=== PATIENT | female | born 1960 | race Caucasian/White ===

== ENCOUNTER 2018-09-11 09:30 | Emergency (ER) | payer OTHER ==
[~2018-09-11] VITALS: Ht 172.7 cm; Wt 81.7 kg
--- OUTSIDE RECORDS SUMMARY | ~2018-09-11 | XMS | Clinical Summary ---
Demographics + + + | Address | [address] | | | [place] [address] | + + + | Home Phone | | + + + | Preferred Language | Unknown | + + + | Marital Status | Single | + + + | Uatsdin Affiliation | CAT | + + + | Race | White | + + + | Ethnic Group | Not or | + + + Author + + + | Author | [facility] | + + + | Organization | [facility] | + + + | Address | Unknown | + + + | Phone | Unavailable | + + + Support + + +---------+ + | Name | Relationship | Address | Phone | + + +---------+ + | Tabitha Short | ECON | Unknown | | + + +---------+ + Care Team Providers + +------+ + | Care Liquid Hydrogen Plant Operator Name | Role | Phone | + +------+ + | Taylor Ludwig PA-C | PP | | + +------+ + Source Comments VIN is fully live on both [facility] Ambulatory and [facility] InPatient.[facility] Allergies No Known Allergies Current Medications + + +---------+---------+------+------+-------+ | Prescription | Sig. | Disp. | Refills | Star | End | Statu | | | | | | t | Date | s | | | | | | Date | | | + + +---------+---------+------+------+-------+ | doxycycline | once daily at | | 1 | 02/0 | | Activ | | monohydrate 100 mg | bedtime. | | | /20 | | e | | oral capsule | | | | 17 | | | + + +---------+---------+------+------+-------+ | estradiol 0.1 | Apply 1 patch to | | 1 | 02/0 | | Activ | | mg/24 hr transdermal | skin twice weekly | | | 20 | | e | | patch semiweekly | (on Thursday and | | | 17 | | | | | Thursday). | | | | | | + + +---------+---------+------+------+-------+ | CALCIUM | Take by mouth once | | | | | Activ | | CARBONATE/VITAMIN D3 | daily at bedtime. | | | | | e | | (CALCIUM + D ORAL) | | | | | | | + + +---------+---------+------+------+-------+ | | Take by mouth once | | | | | Activ | | Hpziz-9-SFB-EPA-Fish | daily at bedtime. | | | | | e | | Oil (FISH OIL) | | | | | | | | 1,000 mg (120 mg-180 | | | | | | | | mg) oral capsule | | | | | | | + + +---------+---------+------+------+-------+ | GLUCOSAMINE | Take by mouth once | | | | | Activ | | SULFATE (GLUCOSAMINE | daily at bedtime. | | | | | e | | ORAL) | | | | | | | + + +---------+---------+------+------+-------+ | ondansetron ODT 4 | Dissolve 1 tablet in | 10 | 0 | 02/2 | | Activ | | mg oral | mouth every twelve | tablet | | /20 | | e | | tablet,disintegratin | hours as needed. | | | 17 | | | | gIndications: | Indications: | | | | | | | Prevent Nausea and | Prevention of | | | | | | | Vomiting After | Post-Operative | | | | | | | Surgery | Nausea and Vomiting | | | | | | + + +---------+---------+------+------+-------+ | | Take 1 tablet by | 20 | 0 | 10/2 | | Activ | | oxyCODONE-acetaminop | mouth every four | tablet | | 5/20 | | e | | hen (PERCOCET) 5-325 | hours as needed. Not | | | 17 | | | | mg oral | to exceed 10 | | | | | | | tabletIndications: | tablets per any 24 | | | | | | | Pain | hour period. | | | | | | | | Indications: Pain | | | | | | + + +---------+---------+------+------+-------+ | | Instill 0.5 inches | 3.5 g | 1 | 10/2 | | Activ | | vclcwkuy-caqzlzjlc-d | into the left eye | | | 5/20 | | e | | examethasone 3.5 | once daily at | | | 17 | | | | mg/g-10,000 | bedtime. | | | | | | | unit/g-0.1 % | Indications: post-op | | | | | | | ophthalmic (eye) | | | | | | | | ointmentIndications: | | | | | | | | post-op | | | | | | | + + +---------+---------+------+------+-------+ | | 1 drop every four | | | | | Activ | | onokdxtc-tdsdcchhy-l | hours as needed. 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 | + + + | Mechanical strabismus, unspecified | 08/12/2016 | + + + | Diplopia | 08/12/2016 | + + + Family History + + +------+ + | Medical History | Relation | Name | Comments | + + +------+ + | Headache | Father | | | + + +------+ + | Cancer | Mother | | lymphocystic leukemia | + + +------+ + | Heart Disease | Paternal | | | | | Grandfath | | | | | er | | | + + +------+ + | High blood pressure | Paternal | | | | | Grandfath | | | | | er | | | + + +------+ + | Macular degeneration | Paternal | | | | | Grandmoth | | | | | er | | | + + +------+ + + +------+--------+ + | Relation | Name | Status | Comments | + +------+--------+ + | Father | | | | + +------+--------+ + | Mother | | | | + +------+--------+ + | Paternal Grandfather | | | | + +------+--------+ + | Paternal Grandmother | | | | + +------+--------+ + Social History + + + +--------+ + | Tobacco Use | Types | Packs/Day | Years | Date | | | | | Used | | + + + +--------+ + | Former Smoker | Cigarettes | 0.12 | 15 | 1999 - 2014 | + + + +--------+ + + +---+---+---+ | Smokeless Tobacco: | | | | | Never Used | | | | + +---+---+---+ + + +---------+ + | Alcohol Use | Drinks/We | oz/Week | Comments | | | ek | | | + + +---------+ + | Yes | 2-5 | 4.2 - | | | | Standard | 6.0 | | | | drinks or | | | | | | | | | | equivalen | | | | | t 5 Cans | | | | | of beer | | | + + +---------+ + + + + | Sex Assigned at | Date Recorded | | | | + + + | Not on file | | + + + Last Filed Vital Signs + + + + | Vital Sign | Reading | Time Taken | + + + + | Blood Pressure | 99/60 | 04/29/2017 1:14 PM PST | + + + + | Pulse | 74 | 04/29/2017 1:14 PM PST | + + + + | Temperature | 36.6 C (97.9 F) | 04/29/2017 1:24 PM PST | + + + + | Respiratory Rate | 18 | 04/29/2017 1:14 PM PST | + + + + | Oxygen Saturation | 98% | 04/29/2017 1:14 PM PST | + + + + | Inhaled Oxygen | - | - | | Concentration | | | + + + + | Weight | 81.6 kg (180 lb) | 04/29/2017 9:38 AM PST | + + + + | Height | 172.7 cm (5' 8") | 04/29/2017 9:38 AM PST | + + + + | Body Mass Index | 27.37 | 04/29/2017 9:38 AM PST | + + + + Plan of Treatment + + + + + | Health Maintenance | Due Date | Last Done | Comments | + + + + + | Influenza (Flu) | | | | | vaccination (#1) | 8 | | | + + + + + Results Not on filefrom Last 3 Months Insurance + +--------+ +------+ + + | Payer | Benefi | Subscriber | Type | Phone | Address | | | t Plan | ID | | | | | | / | | | | | | | Group | | | | | + +--------+ +------+ + + | [employer] | MODA | xxxxxxxxx | PPO | [phone]- | [place] [id number] | | | [employer] | | [phone] | [place] [address] | | | [place] | | | | | | | [place] | | | | | + +--------+ +------+ + + + +--------+ +--------+ + + | Guarantor Name | Accoun | Relation to | Date | Phone | Billing Address | | | t Type | Patient | of | | | | | | | | | | + +--------+ +--------+ + + | ZECHARIAH HENRIQUEZ | Person | Self [birth year] Home: | [address] | | [place] | [place] | | 1960 | [phone] | [place] [address] | | | sharee | | | [phone] | | + +--------+ +--------+ + +
--- OUTSIDE RECORDS SUMMARY | ~2018-09-11 | XMS | Clinical Summary ---
Demographics + + + | Address | [address] | | | [place] [address] | + + + | Home Phone | | + + + | Preferred Language | Unknown | + + + | Marital Status | Unknown | + + + | Yarsanism Affiliation | Unknown | + + + | Race | Unknown | + + + | Ethnic Group | Unknown | + + + Author + + + | Author | [facility] | | | and Darrian | + + + | Organization | [facility] | | | and [place] | + + + | Address | Unknown | + + + | Phone | Unavailable | + + + Care Team Providers + +------+ + | Care Network Systems Operator Name | Role | Phone | + +------+ + PP | Unavailable | + +------+ + Allergies Not on File Current Medications Not on file Active Problems Not on file Social History + +-------+ +--------+------+ | Tobacco Use | Types | Packs/Day | Years | Date | | | | | Used | | + +-------+ +--------+------+ | Never Assessed | | | | | + +-------+ +--------+------+ + + + | Sex Assigned at | Date Recorded | | | | + + + | Not on file | | + + + Plan of Treatment + + + + + | Health Maintenance | Due Date | Last Done | Comments | + + + + + | Vaccine: | | | | | Dtap/Tdap/Td (1 - | 1 | | | | Tdap) | | | | + + + + + | Cervical Cancer | | | | | Screening (Pap) | 2 | | | + + + + + | Vaccine: Zoster (1 | | | | | of 2) | 2 | | | + + + + + | Vaccine: Influenza | | | | | (#1) | 8 | | | + + + + + Results Not on filefrom Last 3 Months"
--- OUTSIDE RECORDS SUMMARY | ~2018-09-11 | XMS | Clinical Summary ---
Demographics + + + | Address | [address] | | | [place] [address] | + + + | Home Phone | | + + + | Preferred Language | Unknown | + + + | Marital Status | Single | + + + | Confucianism Affiliation | CAT | + + + | Race | White | + + + | Ethnic Group | Not or | + + + Author + + + | Author | [facility] | + + + | Organization | [facility] | + + + | Address | Unknown | + + + | Phone | Unavailable | + + + Support + + +---------+ + | Name | Relationship | Address | Phone | + + +---------+ + | Tabitha Short | ECON | Unknown | | + + +---------+ + Care Team Providers + +------+ + | Care Blue Leather Sorter Name | Role | Phone | + +------+ + | Taylor Ludwig PA-C | PP | | + +------+ + Source Comments VIN is fully live on both [facility] Ambulatory and [facility] InPatient.[facility] Allergies No Known Allergies Current Medications + [...] | | | | Activ | | Fskej-5-FHF-EPA-Fish | daily at bedtime. | | | [...] | 10/2 | | Activ | | mbwmcpqw-pragecgfx-v | into the left eye | | [...] | | | | Activ | | bfcthuke-fkgvysloz-h | hours as needed. | | | [...] [phone] | PPO | [phone]- | [place] [address] | | | [employer] | | [phone] | [place] [address] | | | [employer]EX | | | [...] | Self | [birth year] | Home: | [address] | | [place] | [place] | | 1960 | [phone] | [place] [address] | | | sharee | | | [phone] | | + +--------+ +--------+ + +
--- OUTSIDE RECORDS SUMMARY | ~2018-09-11 | XMS | Clinical Summary ---
Demographics + + + | Address | [address] | | | [place] [address] | + + + | Home Phone | | + + + | Preferred Language | Unknown | + + + | Marital Status | Unknown | + + + | Jew Affiliation | Unknown | + + + | Race | Unknown | + + + | Ethnic Group | Unknown | + + + Author + + + | Author | [facility] | | | and [place]rian | + + + | Organization | [facility] | | | and [place] | + + + | Address | Unknown | + + + | Phone | Unavailable | + + + Care Team Providers + +------+ + | Care Group Contract Analyst Name | Role | Phone | + [...]
[~2018-09-11 09:30] MED LIST: CITALOPRAM HBR20 MG PO; DOXYCYCLINE HY100 MG PO; SUDAFED 12 HOU120 MG PO; VIVELLE-DOT1 EAC1 TD
== END 2018-09-11 10:25 | disposition home or self-care (01) ==
LOC: ED 09:30
DX: S83.91XA Sprain of unspecified site of right knee, initial encounter (principal); Z90.710 Acquired absence of both cervix and uterus; Z88.6 Allergy status to analgesic agent; Z88.5 Allergy status to narcotic agent; X50.1XXA Overexertion from prolonged static or awkward postures, initial encounter
CPT/HCPCS: 73560; 99283-25

== ENCOUNTER 2020-12-25 08:01 | Day surgery (SDC) | payer OTHER ==
[~2020-12-25] VITALS: Ht 172.7 cm; Wt 84.1 kg
--- NOTE | 2020-12-25 08:23 | NUR ---
PT ARRIVES TO DS UNIT FOR OUTPATIENT THYROID BIOPSY AMBULATORY. PT PLACED IN RM [address] CASSIDY PLANS TO DO PROCEDURE INBETWEEN SURGICAL CASES. PT HAS LOW V-NECK TOP IN PLACE AND DECLINES GOWN. PROVIDED WARM BLANKET AND CALL LIGHT, PLANS TO OCCUPY SELF WITH CELL PHONE.
--- NOTE | 2020-12-25 09:40 | NUR ---
REPORT FROM ROBERTO PAK THAT PT "HAD A HOT FLASH" WITH PROCEDURE. THIS RN ASSESSES PT, PROVIDES COOL AIR TO PT FACE. PT STATES SHE IS FEELING MUCH BETTER AND DENIES ANY PAIN IN NECK AREA. PT INSTRUCTED TO REMOVE BANDAID WITHIN 24 HOURS AND TO FOLLOW INSTRUCTION FROM DR. CASSIDY. WILL PLAN TO RELEASE PT IN 10-15 MINUTES, CALL LIGHT WITHIN REACH.
--- NOTE | 2020-12-25 10:10 | NUR ---
1000: DR. CASSIDY GIVES THIS RN A VERBAL ORDER THAT PT MAY DC WHEN READY. PT DENIES ANY PAIN OR NAUSEA, STATES SHE "FEELS FINE." PT ALSO STATES THAT HER BP IS NOW CLOSE TO HER BASELINE AND THAT PRIOR TO THE PROCEDURE IT WAS ELEVATED FROM NERVES. PT DENIES ANY DIZZINESS WHEN POSITION CHANGE, AMBULATES TO BR WITH STEADY GAIT. PT DECLINES WC RIDE TO CAR, DC AMBULATORY FROM DS RM 7 TO HOME.
--- NOTE | 2021-01-01 14:34 | OR ---
[facility] [address] [place], [place] [address] Signed DATE OF OPERATION: 12/25/2020 SURGEON: Alvaro Cassidy MD PREOPERATIVE DIAGNOSES: 1. Episodic cervical dysphagia. 2. Left thyroid nodule 20 mm; right-sided nodule, 6 and 5 mm. POSTOPERATIVE DIAGNOSES: 1. Episodic cervical dysphagia. 2. Left thyroid nodule 20 mm; right-sided nodule, 6 and 5 mm. PROCEDURE: Ultrasound-guided fine-needle aspiration biopsy of left thyroid nodule. ANESTHESIA: 0.25% Marcaine (2 mL). INDICATION: This 60-year-old white woman is a patient of Juliana Ludwig. She has had some cervical dysphagia and persistent throat clearing. She has no underlying reflux problems. An ultrasound was performed on November 07, 2020 showing a lower pole left-sided nodule and 2 small nodules on the right side, 7 and 6 mm. The large nodule was considered TI-RADS #1 and the other 2 small nodules considered category 4. She has no family history of thyroid cancer, radiation exposure, or other prior history of thyroid problem and I have recommended biopsy in particular of the lower pole nodule on the left and if feasible, the right-sided nodule though small. She understands the risks of bleeding, infection, nerve injury, failure of diagnosis, and misdiagnosis and wishes to proceed with ultrasound-guided fine-needle aspiration biopsy. FINDINGS: Ultrasound identified the left-sided nodule, which appeared to have somewhat of a calcified rim and a hypoechoic center. The other 2 small nodules were identified and hypoechoic, but not irregular in configuration and less problematic grossly. Ultrasound-guided fine-needle aspiration biopsy was undertaken of the largest nodule 20 mm in size. The patient did have some queasiness during the course of the procedure, though it was not particularly painful. This prompted 1 to be less aggressive on very small nodules on the right side and therefore biopsy on the left side only was performed. Electronically Signed By: ALVARO CASSIDY MD 01/01/21 1434 PATIENT NAME: ZECHARIAH HENRIQUEZ OPERATIVE REPORT DATE OF : 62 REPORT #: [id number] PHYSICIAN: ALVARO CASSIDY MD PCP: JULIANA LUDWIG PA-C REPORT IS CONFIDENTIAL AND NOT TO BE RELEASED WITHOUT AUTHORIZATION [facility] [address] [place], [place] [address] Signed DESCRIPTION OF PROCEDURE: The patient was placed in the supine position with a pillow beneath the shoulders allowing for some neck extension. The neck was evaluated with the [facility] ultrasound device, identified nasally the trachea of the right and left lobes and the respective nodules as noted above. The neck was then prepared with chlorhexidine solution and draped sterilely and 0.25% Marcaine with epinephrine was injected locally, anticipating the alignment of the device for fine-needle aspiration biopsy. Once the lesion in question was identified, a control syringe 10 mL in size with a 22-gauge needle was passed, 1st from a central to lateral position and secondarily direct on face approach allowing for interrogation of the left-sided nodule with multiple passes. The 1st two syringes delivered essentially no bloody fluid at all and uncertainty as to how much was actually collected. The 3rd syringe had a bit more bloody material. All the specimens were placed in the same preservative container. The patient did have a brief episode of feeling a bit faint and clammy and therefore procedure was truncated allowing for her to recover a bit before pursuing the final aspiration biopsy. The symptoms quickly passed and she felt quite well after that. Re-examination of the neck with the ultrasound showed no sign of hematoma or other problem. A Band-Aid was applied to the neck. She tolerated procedure well. MD KWAN Montero/DODIE /[id number] cc: ARIANNA Carmichael Copies: ~ Electronically Signed By: ALVARO CASSIDY MD 01/01/21 1434 PATIENT NAME: ZECHARIAH HENRIQUEZ OPERATIVE REPORT DATE OF : 62 REPORT #: [id number] PHYSICIAN: ALVARO CASSIDY MD PCP: JULIANA LUDWIG PA-C REPORT IS CONFIDENTIAL AND NOT TO BE RELEASED WITHOUT AUTHORIZATION
== END 2020-12-25 10:05 | disposition home or self-care (01) ==
LOC: OPS 08:01 → DS 08:02 → EDSTATUS 09:00 → DS 09:00 → OPS 09:00
PROVIDERS: ATTEND Surgery
DX: E04.2 Nontoxic multinodular goiter (principal)
CPT/HCPCS: 10021

== ENCOUNTER 2021-08-22 08:36 | Day surgery (SDC) | payer OTHER ==
--- NOTE | 2021-08-22 09:28 | NUR ---
0835: PATIENT ARRIVED TO DAY SURGERY UNIT AMBULATORY. PLACED IN ROOM 6. DAUGHTER AT BEDSIDE. 0845: VS CHECKED. CONSENT SIGNED. 09: DR. CASSIDY IN ROOM TO DO PROCEDURE. 09: FINE NEEDLE ASPIRIATION OF LEFT THYROID COMPLETE. PATIENT TOLERATED PROCEDURE WELL. VS CHECKED. PATIENT STATES FEELING WELL AND READY TO GO HOME. PATIENT EDUCATED BANDAID CAN BE REMOVED LATE THIS EVENING OR CAN REMAIN ON UP TO 24 HOURS. PATIENT DRESSED INDEPENDENTLY. PATIENT DISCHARGED TO HOME AMBULATORY WITH DAUGHTER.
--- NOTE | 2021-08-22 12:07 | OR ---
[facility] [address] [place], [place] [address] Signed DATE OF OPERATION: 08/22/2021 SURGEON: Alvaro Cassidy MD PREOPERATIVE DIAGNOSIS: Recurrent left isthmus cystic lesion. POSTOPERATIVE DIAGNOSIS: Recurrent left isthmus cystic lesion. PROCEDURE: Ultrasound-guided fine-needle aspiration biopsy of left thyroid mass (cystic). ANESTHESIA: Local 1% lidocaine. INDICATION: This 61-year-old white woman has a palpable mass located in the left isthmus. She had a similar lesion over a year ago. Fine-needle aspiration biopsy showed no sign of malignancy. The lesion is more problematic to her. She feels fullness and so forth. Consideration has been made for segmental resection of the isthmus to include the cystic lesion, which is closer to the left lobe than the right. Aspiration biopsy will be undertaken at this time by ultrasound guidance and cytology obtained to assess malignancy potential of the lesion, which may guide further therapy. The risk of bleeding, infection, recurrence and so forth were reviewed with her, she understands and wished to proceed. FINDINGS: Ultrasound identified a dumbbell-shaped type cystic lesion of the isthmus trending towards the left thyroid lobe. Needle aspiration allowed for complete decompression of the cyst and bloody fluid of the cyst was noted. It was passed for cytology. DESCRIPTION OF PROCEDURE: In the day surgery area, she was on a stretcher and a pillow placed beneath the shoulders allowing for neck extension. The neck was examined with an ultrasound device (SonArmetheonte), identifying no evidence of nodule within the right thyroid lobe nor in the left thyroid lobe proper. The cystic lesion of the isthmus was well demonstrated and somewhat in a dumbbell-shaped, the larger portion towards the left lobe. The neck was then prepared with chlorhexidine solution and draped sterilely and 1% lidocaine was injected allowing for a sleeve covered SonoSite probe to better characterize the area. Electronically Signed By: ALVARO CASSIDY MD 08/22/21 1207 PATIENT NAME: ZECHARIAH HENRIQUEZ OPERATIVE REPORT DATE OF : 62 REPORT #: [id number] PHYSICIAN: ALVARO CASSIDY MD PCP: JULIANA CAICEDO PA-C REPORT IS CONFIDENTIAL AND NOT TO BE RELEASED WITHOUT AUTHORIZATION [address] [place], [place] [address] Signed Under direct visualization, needle aspiration was undertaken in line for complete decompression of the cystic lesion. The fluid appeared bloody. There was no sign of bleeding locally. A Band-Aid was applied. She tolerated the procedure well. MD KWAN Montero/MODL /[id number] cc: ARIANNA Carmichael Copies: ~ Electronically Signed By: ALVARO CASSIDY MD 08/22/21 1207 PATIENT NAME: ZECHARIAH HENRIQUEZ OPERATIVE REPORT DATE OF : 62 REPORT #: [id number] PHYSICIAN: ALVARO CASSIDY MD PCP: JULIANA CAICEDO PA-C REPORT IS CONFIDENTIAL AND NOT TO BE RELEASED WITHOUT AUTHORIZATION
== END 2021-08-22 09:27 | disposition home or self-care (01) ==
LOC: DS 08:36 → EDSTATUS 09:00 → OPS 09:00 → DS 09:27
PROVIDERS: ATTEND Surgery
PROC: 0GBJ3ZX Excision of Thyroid Gland Isthmus, Percutaneous Approach, Diagnostic (ICD-10-PCS; principal; 2021-08-22)
DX: E04.1 Nontoxic single thyroid nodule (principal); Z90.711 Acquired absence of uterus with remaining cervical stump
CPT/HCPCS: 10021

== ENCOUNTER 2021-12-24 05:54 | Observation (INO) | payer OTHER ==
[~2021-12-24] VITALS: Ht 172.7 cm; Wt 78.2 kg
[2021-12-24] MEDS ORDERED: ADVIL200 MG PO (06:30)
--- NOTE | 2021-12-24 09:09 | NUR ---
PT IS ALERT, ORIENTED AND SUPPORTED BY HER DAUGHTER JANA. PT FEELS INFORMED, WANTS TO VISIT WITH DR CASSIDY AND GIVE HER PERMISSION TO TAKE BOTH SIDES. JANA WILL REMAIN, HAD PRAYER WITH BOTH. GAVE COMFORT AND ENCOURAGEMENT. WILL FOLLOW NEEDED
--- NOTE | 2021-12-24 09:33 | NUR ---
12/24/21 0933 Arabella Dorado 0917 PT TO PACU SLEEPING ORAL AIRWAY IN PLACE, BP DELAYED IN TAKING DUE TO CUFF PLACEMENT AND PT MOVING ARMS. [address] OR[address] AIR[address] REMOVED PT AWAKE AND TALKING, CONTINUES TO TRY TO SIT AND MOVE ARMS AROUND. 09 O2 PLACED VIA NASAL CANNULA, SATS DROPED TO LOW 90S WHEN SHE RELAXES .
--- NOTE | 2021-12-24 10:05 | NUR ---
PT TO ROOM POST SURGERY, BEDSIDE REPORT FROM VICENTA MEJIA, PT MOVES SELF TO BED, ORIENTED PT AND DAUGHTER TO ROOM AND PLAN OF CARE. TRACH SET IN ROOM.
--- NOTE | 2021-12-24 13:14 | NUR ---
PT UP W/STBY (INDEPENDENT W/O IV POLE) TO BATHROOM. PT PERFORMED ORAL CARE, CONTACTS, WASHED FACE, VOID IN HAT. PT STEADY OF FEET NO COMPLAINTS OF PAIN AT THIS TIME. PT BACK IN BED RESTING COMFORTABLY WATCHING TV, DAUGHTER IN ROOM. NO REQUESTS AT THIS TIME. CALL LIGHT IN REACH.
--- NOTE | 2021-12-24 13:45 | NUR ---
PT IN M/S RM 113 FOLLOWING SURGERY. DAUGHTER JANA IN RM. PT ALERT, SEEMS PLEASED WITH HOW EASILY SHE CAME TO. THIS HAS BEEN AN ISSUE WITH PREVIOUS SURGERIES. ROBERTO KING IN CARING FOR PT. GAVE BLESSING AND WILL FOLLOW
--- NOTE | 2021-12-24 14:20 | NUR ---
I was able to visit with Elizabeth today regarding her care while here in the hospital. Elizabeth does have an adult daughter in the room with her. Elizabeth states that she feels her care has been "very good" and she denies complaints regarding her care. Both Elizabeth and her daughter deny questions or concerns at this time. Elizabeth feels that she will be able to go home tomorow. She is oriented to person, place, and time, and she answers questions appropriately. Both her, and her daughter compliment the staff for "doing a very good job" in caring for her as a patient.
--- NOTE | 2021-12-24 15:40 | NUR ---
dr ash here - pt denies pain or needs. leelee osman in am.
--- NOTE | 2021-12-24 19:41 | NUR ---
REPORT RECEIVED AT CHANGE OF SHIFT. PT IS SITTING UP IN BED, AWAKE AND ALERT. NO NEEDS . CALL LIGHT IN REACH.
--- NOTE | 2021-12-24 20:16 | NUR ---
PT CALLED, IV ALARMING. DISTAL OCCULSION, NOW INFUSING. IV WNL. PT DENIES NEEDS.
--- NOTE | 2021-12-24 21:23 | OR ---
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 Frozen pathology negative for malignancy. PROCEDURE: Left thyroid lobectomy with isthmusectomy. ANESTHESIA: General endotracheal, Alvaro Batista CRNA INDICATIONS: This 61-year-old white woman is a patient of Juliana Ludwig. She was found to have on ultrasound a 23 mm left lower pole thyroid cyst that was not particularly simple. Fine-needle aspiration showed only cyst fluid. She was asymptomatic regarding the nodule at that time. Reaccumulation of the fluid was noted on followup ultrasound and fine-needle aspiration biopsy was performed on August 22, 2021, again showing no clear evidence of malignancy. The appearance of the cyst showed nodularity within the cyst on the cyst wall. The two right-sided nodules are well less than 1 cm in size. She has no increased risk of thyroid cancer, specifically no radiation therapy history, no family history of thyroid cancer, and so on. At this point, however, her recurrent left thyroid cyst is causing her symptoms. She feels a fullness in her neck. She does not specifically have dysphagia or trouble breathing. She strongly wishes the cyst to be definitively removed. She also initially was interested in possible total thyroidectomy for the remaining two nodules on the right lobe, though I have recommended against that unless there appears to be a clinical suspicion in them. She understands there are risks to unilateral thyroid lobectomy as well as total thyroidectomy including but not limited to bleeding, infection, recurrent laryngeal nerve injury, external laryngeal nerve injury and other unforeseen complications including parathyroid excision that would be unintended. At this point, she wishes to proceed with left thyroid lobectomy with isthmusectomy for symptom control and definitive diagnosis. She understands those risks that we have Electronically Signed By: ALVARO CASSIDY MD 12/24/212122 PATIENT NAME: ZECHARIAH HENRIQUEZ OPERATIVE REPORT DATE OF : 62 REPORT #: [id number] PHYSICIAN: ALVARO CASSIDY MD PCP: JULIANA LUDWIG PA-C REPORT IS CONFIDENTIAL AND NOT TO BE RELEASED WITHOUT AUTHORIZATION [facility] [address], [place] [address] Signed described and wished to proceed. FINDINGS: The thyroid generally speaking was rather small. The cystic area on the left lower pole appeared to be decompressed of fluid. There was a small nodule in the inferior pole about a cm in size or possibly less. Frozen pathology by Dr. Fulton showed no evidence of malignancy of the thyroid gland. The parathyroid glands were identified and preserved. The recurrent laryngeal nerve as it entered the larynx was identified post excision. The ligament of Mcneil itself was carefully transected and a small nodule of the isthmus additionally noted appeared to be benign. There was good hemostasis throughout and no known complications to operation. DESCRIPTION OF PROCEDURE: The patient was brought to the operating room, given a general endotracheal anesthetic. A shoulder roll was placed and mild neck extension secured for the head secured. A bre lounge position was maintained. The neck and upper torso were prepared with chlorhexidine solution and draped sterilely. She received preoperative antibiotic Ancef and sequential compression device stockings were used. Natural skin lines were identified at appropriate level and the site was marked. An incision was made between the medial heads of the sternocleidomastoid muscle. Dissection carried through the dermis sharply. Electrocautery used for hemostasis. Subcutaneous fat was divided with electrocautery as was the platysmal layer. Superior and inferior flaps were developed using blunt and electrocautery dissection. Gelpi retractors were placed and the avascular midline fascia identified the strap muscles. This avascular plane was incised longitudinally elevating the sternal hyoid and ultimately sternothyroid muscle. Sharp dissection was undertaken freeing the strap muscles from the underlying left thyroid gland. The gland was relatively small in nature. Palpation did not reveal a large cyst at this point. Likely, it had been decompressed. A lower pole small nodule was also noted. Middle thyroidal veins connecting to the capsule of the thyroid were secured with 4-0 silk ties and divided. The thyroid was rotated towards the midline. Sharp dissection used to divide the loose areolar tissue posteriorly. Dissection was undertaken in the superior pole on the left side individually ligating vascular branches, securing them with 4-0 silk ties. Some of the branches were secured with clips for convenience. The inferior pole was similarly dissected free. Perpetual rolling of the thyroid towards the midline allowed for good identification of the posterior elements. The recurrent laryngeal nerve was not readily apparent at that point. Using the subcapsular technique of Pérez, individual branches of vessels were Electronically Signed By: ALVARO CASSIDY MD 12/24/212122 PATIENT NAME: ZECHARIAH HENRIQUEZ OPERATIVE REPORT DATE OF : 62 REPORT #: [id number] PHYSICIAN: ALVARO CASSIDY MD PCP: JULIANA LUDWIG PA-C REPORT IS CONFIDENTIAL AND NOT TO BE RELEASED WITHOUT AUTHORIZATION [facility] [address], [place] [address] Signed secured to the thyroid parenchyma in the midportion. The ligament of Mcneil was identified and carefully divided with a 15 blade and a small amount of electrocautery as appropriate allowing for the thyroid to roll to the midline completely and the avascular plane in the pretracheal space identified. The dissection was carried more to the right side and hemostats applied to the junction between the right lobe and the isthmus and the parenchyma divided. The remnants of the right lobe were then secured with 4-0 silk suture for hemostasis. There was one area requiring a 4-0 silk suture, which represented an arterial branch near the ligament of Mcneil; ligation in this way allowed for avoidance of cautery in the area of vulnerability in the tracheoesophageal groove. Good hemostasis was maintained. Irrigation was undertaken showing no untoward bleeding. The wound was then packed with gauze. The specimen was sent for frozen pathology. It was later learned from the pathologist that there was no evidence of malignancy on frozen examination. An inferior left polar nodule was identified as was an isthmus nodule. The cystic portion appeared to be nonmalignant and likely already decompressed. Brief dissection over the right thyroid lobe was undertaken allowing for palpation of the right lobe. There was no palpable abnormality of concern. Further dissection and removal of this lobe was deemed unnecessary. Irrigation was undertaken and aerosolized fibrin glue (Tisseel) applied to the operative site on the left side. The midline strap muscles were reapproximated with interrupted 2-0 Vicryl as was the platysmal layer. The skin was closed with running subcuticular 3-0 Vicryl. Steri-Strips were applied as was Acticoat dressing. The patient tolerated the procedure well. Blood loss was less than 10 mL in aggregate. Sponge, needle, and instrument counts were reported as correct x3. MD KWAN Montero/WENDYL /[id number] Electronically Signed By: ALVARO CASSIDY MD 12/24/212122 PATIENT NAME: ZECHARIAH HENRIQUEZ OPERATIVE REPORT DATE OF : 62 REPORT #: [id number] PHYSICIAN: ALVARO CASSIDY MD PCP: JULIANA LUDWIG PA-C REPORT IS CONFIDENTIAL AND NOT TO BE RELEASED WITHOUT AUTHORIZATION [address] [place] [address] Signed Copies: ~ Electronically Signed By: ALVARO CASSIDY MD 12/24/212122 PATIENT NAME: ZECHARIAH HENRIQUEZ OPERATIVE REPORT DATE OF : 62 REPORT #: [id number] PHYSICIAN: ALVARO CASSIDY MD PCP: JULIANA LUDWIG PA-C REPORT IS CONFIDENTIAL AND NOT TO BE RELEASED WITHOUT AUTHORIZATION
--- NOTE | 2021-12-25 00:32 | NUR ---
PT REQUESTED SOMETHING FOR HER INCISIONAL PAIN. SHE WAS GIVEN DILAUDID 2 MG PO. SHE ALSO WAS UP TO THE BATHROOM WITHOUT CALLING. SUGGESTED SHE CALL TO HELP MANAGE HER IV POLE AND I & O.
--- NOTE | 2021-12-25 01:37 | NUR ---
V/S TAKEN AND CHARTED. PATIENT DENIES ANY NEEDS AT THIS TIME.
--- NOTE | 2021-12-25 08:16 | NUR ---
REPORT RECEIVED. PT IN BED. DENIES PAIN AND NAUSEA. BREATHING NORMAL. FLUIDS INFUSING PER ORDER. CALL LIGHT IN REACH. DENIES NEEDS.
--- NOTE | 2021-12-25 09:16 | NUR ---
ASSESSMENT COMPLETED. NO SWELLING IN NECK. PT REPORTS PAIN 2/10. NO NUMBNESS OR TINGLING. PT REPORTS COUGHING UP THICK PHLEGM. SWALLOWING WELL. DENIES NEEDS. CALL LIGHT IN REACH.
--- NOTE | 2021-12-25 10:44 | NUR ---
PT ALERT, ORIENTED AND RESTING IN BED, NIBBLING ON BREAKFAST. DAUGHTER JANA AT BS. PT DIDN'T SLEEP WELL, BUT HAS BEEN VERY PLEASED WITH HER CARE WITH THE EXCEPTION OF MEALS. "THEY JUST AREN'T THE SAME QUALITY BEFORE". BLESSING GIVEN, PT REQUESTS VISIT FROM TODAY. HOPES TO VT LATER TODAY.
--- NOTE | 2021-12-25 10:57 | NUR ---
ROUNDED WITH DR CASSIDY. PLAN FOR DISCHARGE DISCUSSED. FLUIDS DC'D AND IV REMOVED. CATH INTACT. NO CONCERNS. PT GETTING DRESSED NOW
[2021-12-25] MEDS ORDERED: ACETAMINOPHEN500 MG PO (11:02)
--- NOTE | 2021-12-25 11:32 | NUR ---
DISCHARGE INSTRUCTIONS PROVIDED. PT REPORTING PAIN 08/29. REQUESTING DELAUDID FOR RIDE HOME. PT GOING TO START WITH MOTRIN AND TYLENOL ONCE HOME. INSTRUCTED PT TO CONTACT 'S OFFICE IF PAIN REGIMEN IS NOT WORKING. DISCUSSED S/SX OF INFECTION AND HYPOCALEMIA. PT WHEELED OUT. NO QUESTIONS.
--- NOTE | 2022-01-01 15:41 | PATH ---
[facility] [address], [place] [address] Signed SPECIMEN(S): A LEFT THYROID WITH ISTHMUS SPECIMEN SOURCE: A. LEFT THYROID WITH ISTHMUS CLINICAL HISTORY: Thyroid nodules FROZEN SECTION DIAGNOSIS: A. Left thyroid and isthmus:Isthmus cyst: Cystic follicular lesion -No definitive capsule identified -No evidence of papillary thyroid carcinoma on [employer] sections. (Dr. Fulton, 12/24/2021 at 9:06 AM) Location of frozen procedure: [facility] Frozen section diagnoses called to Dr. Pleitez at 9:06 AM. KD (under the direct supervision of a pathologist) The Gross Description was prepared using a voice recognition system. The report was reviewed for accuracy; however, sound-alike word errors, addition and/or deletions may occur. If there is any question about this report, please contact Client Services. FINAL PATHOLOGIC DIAGNOSIS: Thyroid, left lobe and isthmus, hemithyroidectomy: - Benign follicular cyst (1.2 cm in greatest dimension). 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 - One lymph node with no evidence of malignancy (0/1) COMMNENT: Selected slides from this case were reviewed with another member of our pathology staff (AKIL). NAL:cml:[id number] MICROSCOPIC EXAMINATION: Histologic sections of all submitted blocks are examined by light microscopy. These findings, together with the gross examination, support the pathologic diagnosis. The well-circumscribed nodule in the lower pole demonstrates Hurthle cell change but some nuclear chromatin clearing. Definitive nuclear feature of papillary thyroid carcinoma are absent. Immunohistochemical stains (with appropriately staining controls) were performed. CD56 does show patchy loss in the nodules and CK19 is positive, however CK19 is also positive in the background thyroid as well. Overall, given the combined morphologic and immunophenotypic profile, this is interpreted as PATIENT NAME: ZECHARIAH HENRIQUEZ PATHOLOGY DATE OF : 62 REPORT #: [id number] PHYSICIAN: MAXI PATHOLOGY PCP: JULIANA CAICEDO PA-C REPORT IS CONFIDENTIAL AND NOT TO BE RELEASED WITHOUT AUTHORIZATION [facility] [address], [place] [address] Signed nodular hyperplasia with Hurthle cell change. GROSS DESCRIPTION: The specimen, labeled "Janette, left thyroid with isthmus," is received fresh for frozen section diagnosis and consists of a left thyroid lobectomy (40.8 g, 5.3 cm superior to inferior x 2.5 cm medial to lateral x 0.7 cm anterior to posterior) with attached isthmus (2.4 cm superior to inferior x 1.6 cm medial to lateral x 0.6 cm anterior to posterior). The isthmus margin is inked purple, anterior blue, and posterior black. The specimen is serially sectioned from superior to inferior to show a 1.2 x 0.6 x 0.8 cm cyst within the isthmus and a 0.9 x 0.7 x 0.7 cm nodule within the lower pole. Two sections of the isthmic cyst wall are submitted for a frozen section diagnosis as FSA1. The remaining parenchyma is red-brown and spongy with no additional nodules or lesions. The specimen is submitted entirely as follows: Cassette summary: A1 FSA1, isthmus cyst A2 remaining inferior nodule A3 remaining isthmus cyst A4 superior end, perpendicular A5-A9 central sections submitted superior to inferior PERFORMING LABORATORY: Frozen section performed at [facility], [address], [place] [address] (CLIA# [id number]). The technical component was performed by [facility], [address] [place] [id number] (CLIA# [id number]). [facility] [address] [address] (CLIA# [id number]). Diagnostician: Aicha Fulton MD Pathologist Electronically Signed 01/01/2022 Copies: ~ PATIENT NAME: ZECHARIAH HENRIQUEZ PATHOLOGY DATE OF : 62 REPORT #: [id number] PHYSICIAN: MAXI CORTES PCP: JULIANA CAICEDO PA-C REPORT IS CONFIDENTIAL AND NOT TO BE RELEASED WITHOUT AUTHORIZATION
== END 2021-12-25 11:30 | disposition home or self-care (01) ==
LOC: DS 05:54 → MS 09:51
PROVIDERS: ADMIT Surgery; ATTEND Surgery
PROC: 0GTG0ZZ Resection of Left Thyroid Gland Lobe, Open Approach (ICD-10-PCS; principal; 2021-12-24 06:45)
DX: E04.2 Nontoxic multinodular goiter (principal); D31.60 Benign neoplasm of unspecified site of unspecified orbit; Z88.5 Allergy status to narcotic agent
CPT/HCPCS: 36415; 84443; A9270; G0378; J0131; J0330; J0690; J1100; J1885; J2250; J2405; J2704; J2765; J3010; J7121

== ENCOUNTER 2023-06-01 15:40 | Emergency (ER) | payer OTHER ==
[~2023-06-01] VITALS: Ht 172.7 cm; Wt 78.0 kg
[~2023-06-01 15:40] MED LIST changes: +ACETAMINOPHEN500 MG PO; +ADVIL200 MG PO
[2023-06-01] MEDS ORDERED: AMOX TR-K CLV1 EAC1 PO (19:22)
[2023-06-01 19:37] VITALS: BP 129/90
== END 2023-06-01 19:37 | disposition home or self-care (01) ==
LOC: ED 15:40
DX: S81.852A Open bite, left lower leg, initial encounter (principal); Z88.5 Allergy status to narcotic agent; W54.0XXA Bitten by dog, initial encounter
CPT/HCPCS: 12002; 99283